=== PATIENT | male | born 1990 | race Caucasian/White ===

== ENCOUNTER 2018-03-19 13:57 | Emergency (ER) | payer BC, OTHER ==
[2018-03-19 14:16] VITALS: BP 142/92; PULSE 73; TEMP 98.3; BMI 48.6
[2018-03-19 16:21] LABS: BASO % 0.8 % (0-2.0); EOS % 3.7 % (0-4.5); HEMATOCRIT 39.5 % (35.4-49); HEMOGLOBIN 13.8 GM/dL (11.7-16.9); LYMPH % 21.5 % (8-40); MCH 31.2 pg (25.7-33.7); MCHC 34.9 g/dl (32.0-35.9); MEAN CELL VOLUME 89.5 fl (80-96); MEAN PLT VOLUME 7.7 fl (7.5-11.1); MONO % 9.6 % (3.8-10.2); NEUT % 64.4 % (42.8-82.8); PLATELET COUNT 259 K/MM3 (134-434); RBC 4.41 M/mm3 (4.00-5.60); RDW 14.2 % (11.9-15.9); WHITE BLOOD COUNT 9.8 K/mm3 (4.0-10.0)
[2018-03-19 16:41] LABS: URINE APPEARANCE CLEAR; URINE BILIRUBIN NEGATIVE (<2.0 mg/dL); URINE COLOR YELLOW; URINE GLUCOSE (UA) NEGATIVE (NEGATIVE); URINE KETONE NEGATIVE (NEGATIVE); URINE LEUK ESTERASE NEGATIVE (NEGATIVE); URINE NITRITE NEGATIVE (NEGATIVE); URINE PROTEIN NEGATIVE (NEGATIVE)
[2018-03-19 16:46] LABS: ALBUMIN 3.7 g/dl (3.4-5.0); ALK PHOS 61 U/L (45-117); ANION GAP 5 MMOL/L (8-16); BILIRUBIN,TOTAL 0.4 mg/dL (0.2-1); BLOOD UREA NITROGEN 15 mg/dL (7-18); CALCIUM 9.1 mg/dL (8.5-10.1); CHLORIDE 104 mmol/L (98-107); CO2 29 mmol/L (21-32); CREATININE 0.7 mg/dL (0.55-1.3); GLUCOSE,RANDOM 102 mg/dL (74-106); LIPASE 125 U/L (73-393); POTASSIUM 3.9 mmol/L (3.5-5.1); SGOT/AST 36 U/L (15-37); SGPT/ALT 102 U/L (13-61); SODIUM 138 mmol/L (136-145); TOT PROT 8.1 g/dl (6.4-8.2)
--- NOTE | 2018-03-19 16:49 | PDOC ---
History of Present Illness - General History Source: Patient Exam Limitations: No Limitations - History of Present Illness Initial Comments: 03/19/18 16:44 28 yo M morbidly obese, with no known PMHx comes in c/o 2-3 days of intermittent diffuse abdominal cramping, no other complaints today, no fever/ chills, no NVD, no constipation, no penile discharge, no burning/pain on urination, no known sick contacts, no recent travel. Pt does not have a PMD. NO medical complaints at this time. <Marci Dawn - Last Filed: 03/19/18 17:12> <David Oliver - Last Filed: 03/21/18 01:31> - General Chief Complaint: Pain Stated Complaint: ABDOMINAL PAINS Time Seen by Provider: 03/19/18 14:57 Past History - Past Medical History COPD: No - Suicide/Smoking/Psychosocial Hx Smoking History: Never smoked Information on smoking cessation initiated: No <Marci Dawn - Last Filed: 03/19/18 17:12> <David Oliver - Last Filed: 03/21/18 01:31> - Past Medical History Allergies/Adverse Reactions: Allergies Allergy/AdvReac Type Severity Reaction Status Date / Time No Known Allergies Allergy Verified 03/19/18 14:16 Home Medications: Ambulatory Orders NK [No Known Home Medication] 03/19/18 Review of Systems - Review of Systems Able to Perform ROS?: Yes Constitutional: No: Chills, Fever, Malaise, Night Sweats HEENTM: No: Eye Pain, Recent change in vision, Throat Pain Respiratory: No: Cough, Shortness of Breath Cardiac (ROS): No: Chest Pain, Palpitations, Chest Tightness ABD/GI: Yes: Abdominal cramping. No: Diarrhea, Nausea, Vomiting : No: Dysuria, Hematuria Musculoskeletal: No: Back Pain Integumentary: No: Rash Neurological: No: Headache, Numbness, Dizziness Psychiatric: No: Change in Appetite Endocrine: No: Unexplained Weight Loss <LópezMarci - Last Filed: 03/19/18 17:12> *Physical Exam - Vital Signs Last Vital Signs Temp Pulse Resp BP Pulse Ox 98.3 F 73 18 142/92 99 03/19/18 14:13 03/19/18 14:13 03/19/18 14:13 03/19/18 14:13 03/19/18 14:13 - Physical Exam General Appearance: Yes: Nourished. No: Apparent Distress HEENT: positive: [place], Normal ENT Inspection, Normal Voice. negative: Pale Conjunctivae, Scleral Icterus (R), Scleral Icterus (L) Neck: positive: Supple. negative: Decreased range of motion, Tender midline Respiratory/Chest: positive: Lungs Clear, Normal Breath Sounds. negative: Respiratory Distress, Accessory Muscle Use Cardiovascular: positive: Regular Rhythm, Regular Rate Gastrointestinal/Abdominal: positive: Normal Bowel Sounds, Soft, Tenderness ( mild epigastric tenderness, (-)goldstein's sign, (-)Rosving sign, (-)psoas sign, no CVA tenderness). negative: Tender Musculoskeletal: positive: Normal Inspection. negative: CVA Tenderness, Decreased Range of Motion Extremity: positive: Normal Capillary Refill, Normal Inspection, Normal Range of Motion. negative: Tender, Pedal Edema Integumentary: positive: Normal Color, Dry. negative: Jaundice, Rash Neurologic: positive: Fully Oriented, Alert, Normal Mood/Affect <Marci Dawn - Last Filed: 03/19/18 17:12> - Vital Signs Last Vital Signs Temp Pulse Resp BP Pulse Ox 98.3 F 73 18 142/92 99 03/19/18 14:13 03/19/18 14:13 03/19/18 14:13 03/19/18 14:13 03/19/18 14:13 <David Oliver - Last Filed: 03/21/18 01:31> Moderate Sedation - Procedure Monitoring Vital Signs: Procedure Monitoring Vital Signs Temperature 98.3 F 03/19/18 14:13 Pulse Rate 73 03/19/18 14:13 Respiratory Rate 18 03/19/18 14:13 Blood Pressure 142/92 03/19/18 14:13 O2 Sat by Pulse Oximetry (%) 99 03/19/18 14:13 <Marci Dawn - Last Filed: 03/19/18 17:12> - Procedure Monitoring Vital Signs: Procedure Monitoring Vital Signs Temperature 98.3 F 03/19/18 14:13 Pulse Rate 73 03/19/18 14:13 Respiratory Rate 18 03/19/18 14:13 Blood Pressure 142/92 03/19/18 14:13 O2 Sat by Pulse Oximetry (%) 99 03/19/18 14:13 <David Oliver - Last Filed: 03/21/18 01:31> ED Treatment Course - LABORATORY CBC & Chemistry Diagram: 03/19/18 16:08 03/19/18 16:08 - ADDITIONAL ORDERS Additional order review: 03/19/18 16:08 RBC 4.41 MCV 89.5 MCHC 34.9 RDW 14.2 MPV 7.7 Neutrophils % 64.4 Lymphocytes % 21.5 Monocytes % 9.6 Eosinophils % 3.7 Basophils % 0.8 <Marci Dawn - Last Filed: 03/19/18 17:12> - LABORATORY CBC & Chemistry Diagram: 03/19/18 16:08 03/19/18 16:08 - ADDITIONAL ORDERS Additional order review: Laboratory Results 03/19/18 03/19/18 16:08 16:08 Sodium 138 Potassium 3.9 Chloride 104 Carbon Dioxide 29 Anion Gap 5 L BUN 15 Creatinine 0.7 Creat Clearance w eGFR > 60 Random Glucose 102 Calcium 9.1 Total Bilirubin 0.4 AST 36 ALT 102 H Alkaline Phosphatase 61 Total Protein 8.1 Albumin 3.7 Lipase 125 Urine Color Yellow Urine Appearance Clear Urine pH 7.0 Ur Specific [place] 1.023 Urine Protein Negative Urine Glucose (UA) Negative Urine Ketones Negative Urine Blood Negative Urine Nitrite Negative Urine Bilirubin Negative Urine Urobilinogen 2.0 Ur Leukocyte Esterase Negative 03/19/18 16:08 RBC 4.41 MCV 89.5 MCHC 34.9 RDW 14.2 MPV 7.7 Neutrophils % 64.4 Lymphocytes % 21.5 Monocytes % 9.6 Eosinophils % 3.7 Basophils % 0.8 <David Oliver - Last Filed: 03/21/18 01:31> Medical Decision Making - Medical Decision Making 03/19/18 16:50 28 yo M w/ non specific abdominal cramping, no complaints at the moment. WIll check basic labs, UA and reassess <Marci Dawn - Last Filed: 03/19/18 17:12> - Medical Decision Making 03/21/18 01:30 The patient was seen and evaluated in conjunction with CURRY Dawn under my direct supervision, ancillary studies were reviewed. I agree with the plan as outlined by CURRY Dawn . <David Oliver - Last Filed: 03/21/18 01:31> *DC/Admit/Observation/Transfer - Discharge Dispostion Decision to Admit order: No <Marci Dawn - Last Filed: 03/19/18 17:12> <David Oliver - Last Filed: 03/21/18 01:31> Diagnosis at time of Disposition: Abdominal pain Qualifiers: Abdominal location: generalized Qualified Code(s): R10.84 - Generalized abdominal pain - Discharge Dispostion Disposition: HOME Condition at time of disposition: Stable - Referrals Referrals: [facility] [Provider Group] - Patient Instructions Additional Instructions: Make sure that you follow up with your regular doctor or our internal medicine group. Call to schedule an appointment. Return for worsening/concerning symptoms. Pt verbalizes understanding and agrees with plan - Post Discharge Activity Forms/Work/School Notes: Back to Work
== END 2018-03-19 17:23 | disposition home or self-care (01) ==
LOC: JER 13:57 → EDBD 13:57 → JER 17:23
DX: R10.84 Generalized abdominal pain (principal); E66.01 Morbid (severe) obesity due to excess calories; Z68.42 Body mass index [BMI] 45.0-49.9, adult
CPT/HCPCS: 36415; 80053; 81003; 83690; 85025; 87086; 99282-25